=== PATIENT | male | born 1965 | race Caucasian/White ===

== ENCOUNTER 2025-05-30 17:15 | Observation (INO) | payer OTHER, SELFPAY ==
[2025-05-30 12:34] VITALS: BP 175/104
--- NOTE | 2025-05-30 13:01 | ED.GENMED ---
History of Present Illness
General
Chief Complaint: Abdominal Pain
Source: patient and spouse
Exam Limitations: none
Time Seen by Provider: 05/30/25 12:54
History of Present Illness
History of Present Illness:
60-year-old male history of hypertension cholesterol presents with sudden onset of epigastric pain rating to his back with nausea. Started about 2 hours prior to ER arrival. No history of same. Symptoms are severe in nature. No chest pain
shortness of breath. Bowel movements are normal.
Past History
Past History
ED Past Medical History: GERD, HTN and Hypercholesterolemia
ED Past Surgical History: Other (Hernia surgery)
Review of Systems
Review of Systems
All Other Systems: Not applicable
Constitutional: Denies fever or chills
Respiratory: Reports no symptoms
Cardiac: Reports no symptoms
Phy Exam
Physical Exam
Physical Exam:
GENERAL: Alert and oriented. Not toxic but appears very uncomfortable moaning in pain
EYE: Orbits normal.
NECK: Supple, no significant adenopathy.
ENT: Pharynx without erythema
CARDIAC: Regular rate and rhythm without any obvious murmurs.
LUNGS: Clear breath sounds,normal
ABDOMEN: Mild distention. Decreased bowel sounds. Moderate reproducible epigastric tenderness. Mild right upper quadrant tenderness. Good distal pulses and color
NEUROLOGICAL: Alert and oriented , grossly non-focal
SKIN: Warm and dry, no rash or lesion, no discoloration, skin intact.
MUSCULOSKELETAL: No edema,no deformity.Good color
PSYCH: Normal and appropriate interaction.
Course
Orders/Labs/Results
Orders:
Orders
05/30/25
Electrocardiogram (*1) Stat
Comment: DONE
Electrocardiogram (*1) Stat
Comment: DONE EMR
05/30/25 Breakfast
Cholesterol Lowering
Cholesterol Lowering: Sodium, 2 Gram
05/30/25 12:36
ECG [Electrocardiogram (*1)] Urgent
Reason for Study: Abdominal Pain
EKG- Treatment ONCE
05/30/25 12:50
Complete Blood Count/With Diff Urgent
Troponin I Urgent
05/30/25 13:00
CT Abd/pelvis Angio W/wo Iv Stat
Comment:
Reason For Exam: Sudden epigastric pain to the back
Cardiac Monitoring- Treatment ONCE
IV Insert/Care/Rem.- Treatment PRN
0.9% Sodium Chloride 1000 ml [Nss] 1,000 ml IV BOLUS
HYDROmorphone [Dilaudid] 0.5 mg IV NOW STA
Ondansetron Injectable [Zofran] 4 mg IV NOW STA
05/30/25 13:06
HYDROmorphone [Dilaudid] 0.5 mg IV NOW STA
05/30/25 13:43
Comprehensive Metabolic Panel Urgent
Lipase Urgent
05/30/25 14:02
Troponin I Urgent
05/30/25 14:43
US Abdomen Complete/Upper Urgent
Reason For Exam: Sudden epigastric right upper quadrant pain. lfts
05/30/25 Dinner
Clear Liquid
At Your Request: Full Participation
05/30/25 16:29
Electrocardiogram (*1) Stat
Reason for Study: Other
Other Reason for Exam: chest pain
EKG- Treatment ONCE
05/30/25 16:32
Troponin I Urgent
05/30/25 16:57
Admit/Transfer Patient As Directed
Co-Sign Provider:
Level of Care: Observation services
Assign to:: Telemetry
Physician / Group: Lalo Vang
Diagnosis: abdominal pain, elevate troponin, transaminitis
Reason for Telemetry: Chest Pain syndromes
Date to Stop Telemetry: 06/01/25
Time to Stop Telemetry: 11:00
PRN Pain Medication Management As Directed
May give lesser potent ordered pain med per pt: Yes
preference::
Protocol:: Medication orders for pain may be administered in a
manner that supports deferring to patient preference
when the pt is:
- Requesting an ordered lesser potent pain medication.
Least to most potent pain medications are defined
as: acetaminophen < NSAID < tramadol < opioids
(morphine, oxycodone, hydromorphone).
- Requesting a lesser dose of the same medication IF
ORDERED.
- Requesting a less intrusive route of administration
if both routes are prescribed by the provider (PO <
IV).
05/30/25 16:58
Code Status As Directed
Resuscitation Status: Full Code
05/30/25 18:50
Acetaminophen [Tylenol] 650 mg PO Q4HPRN PRN
HYDROmorphone [Dilaudid] 0.5 mg IV Q4HPRN PRN
Ondansetron Injectable [Zofran] 4 mg IV Q6HPRN PRN
Oxycodone [Roxicodone] 5 mg PO Q4HPRN PRN
Sumatriptan Succinate [Imitrex] See Dose Instructions PO .COMPLEX
05/30/25 18:50
Consult Gastroenterology [GASTROINTESTINAL CONSULT] Routine
Consulting Provider: Jayleen Andrade
Was physician already notified: Yes
Activity As Directed
Activity Level: Ambulate
Vital Signs As Directed
Frequency: Per unit guidelines
Weight As Directed
Frequency: Once
Comment: on admission
DX Deep Vein Thrombosis Video Routine
05/30/25 19:15
Enoxaparin Sodium [Lovenox] 40 mg SC QPM
05/31/25 06:00
Basic Metabolic Panel IN AM
Complete Blood Count/No Diff IN AM
Mrcp Without MR [MR Mrcp Without] IN AM
Comment: add MRI abdomen
Reason For Exam: abdominal pain
Recent pill cam endoscopy?: No
05/31/25 08:00
Losartan [Cozaar] 50 mg PO DAILY
Pantoprazole [Protonix] 40 mg PO DAILY
06/01/25 11:00
DC Protocol for Telemetry ONCE
Abnormal Lab Results
05/30/25 05/30/25 05/30/25
12:50 13:43 14:02
WBC 11.4 H 10^3/uL
(4.8-10.8)
Absolute Neuts (auto) 9.3 H 10^3/uL
(1.4-6.5)
Absolute Lymphs (auto) 1.1 L 10^3/uL
(1.2-3.4)
Absolute Monos (auto) 0.8 H 10^3/uL
(0.1-0.6)
Neutrophils % 81.9 H %
(42.2-75.2)
Lymphocytes % 9.9 L %
(20.5-51.1)
Sodium 134 L mmol/L
(135-145)
Carbon Dioxide 21 L mmol/L
(22-30)
Glucose 118 H mg/dl
(70-99)
Total Bilirubin 2.3 H mg/dl
(0.2-1.3)
AST 139 H U/L
(17-59)
ALT 65 H U/L
(0-50)
Troponin I 0.040 H* D ng/ml
05/30/25
16:32
WBC
Absolute Neuts (auto)
Absolute Lymphs (auto)
Absolute Monos (auto)
Neutrophils %
Lymphocytes %
Sodium
Carbon Dioxide
Glucose
Total Bilirubin
AST
ALT
Troponin I 0.049 H* ng/ml
05/30/25 12:50
05/30/25 13:43
Vital Signs
Initial and Last Documented VS:
Initial Vital Signs
Temp Pulse Resp BP Pulse Ox
97.6 F 66 22 175/104 100
05/30/25 12:34 05/30/25 12:34 05/30/25 12:34 05/30/25 12:34 05/30/25 12:34
Last Documented Vital Signs
Temp Pulse Resp BP Pulse Ox
97.6 F 53 12 183/92 99
05/30/25 18:53 05/30/25 18:53 05/30/25 18:53 05/30/25 18:53 05/30/25 18:53
MDM/Problems Addressed
Differential Diagnosis Includes:
Sudden onset epigastric pain to the back. Doubt cardiac. Clearly has exquisite tenderness in the epigastric and some in the right upper quadrant. EKG stable. Will do troponin. Higher on the list would either be bowel obstruction
gastritis/ulcer/dissection/gallbladder. With patient's sudden discomfort level radiation of the back feel CT angio needs to be done ROXANNA.
*Pulse Oximetry
SaO2: 100
Oxygen Mode of Delivery: Room air
Patient hypoxic: no (100)
*Critical Care Note
Total Time (30-74mins, 75-104mins- exclusive of procedures): 40
Update Note
Update Note:
1302.... CAT scan was called. Sudden epigastric pain to the back. Not toxic appearing but appears very uncomfortable. Feel dissection needs to be ruled out ROXANNA. Patient has no history of renal issues. Will not wait on labs. CT notified.
1415... Patient rechecked. Appears very comfortable at this time. Troponin normal but not low normal. Repeat EKG stable. Elected to repeat troponin early. Also await LFTs and lipase. CT negative.
1530... Patient has remained very comfortable and stable. Abdominal exam is currently now unremarkable. Somewhat concerned about the slight troponin trend although repeat EKG was normal and patient is currently asymptomatic. Patient warrants
admission. If the ultrasound is positive this would be consistent with a gallbladder issue. The ultrasound is negative he still has nonspecific LFT elevations with trending troponins.
ED Attending Note
-
Portions of this chart may have been created with voice recognition software.� Occasional wrong word or��sound alike� substitutions may have occurred due to the inherent limitations of voice recognition software.
Discharge Plan
Departure
Patient Disposition: Admit
Date of Disposition: 05/30/25
Time of Disposition: 16:24
Presentation/result/management discussed w/ accepting MD/DO: Hospitalist
Discharge Problem:
Sudden epigastric pain, Transaminitis, Possible new onset angina
Interventions
Interventions:
*Risk Screen - Suicide Last Done: 05/30/25 12:34
*General Assessment Last Done: 05/30/25 14:20
*Neglect/Abuse Screening Last Done: 05/30/25 14:20
*ED- Fall Risk Assessment Last Done: 05/30/25 14:20
*ED COVID-19 Vaccine History Last Done: 05/30/25 14:20
*ED Influenza Vaccine History Last Done: 05/30/25 14:20
*Nursing Disposition Last Done: 05/30/25 18:40
OA-Nnjsmb-Qdqcahofda Assessment Last Done: 05/30/25 13:35
Discharge Date and Time
Discharge Date/Time: 05/30/25 18:40
[2025-05-30] MEDS: DILAUDID 0.5 MG IV (13:03)
[2025-05-30 13:04] LABS: Hematocrit 46.9 % (39.0-52.0); Hemoglobin 15.9 g/dL (13.0-18.0); Mean Corp Hgb Conc. 33.9 g/dL (33.0-37.0); Mean Corpuscular Volume 90.4 fL (80.0-94.0); Nucleated Red Blood Cells % 0 % (-); Platelet Count 279 10^3/uL (130-400); Red Cell Dist. Width 12.8 % (11.5-14.5)
[2025-05-30] MEDS: ZOFRAN 4 MG IV (13:04)
[2025-05-30] MEDS: NSS 1000 IV (13:05)
[2025-05-30 13:24] VITALS: BP 161/81
[2025-05-30 13:30] LABS: Troponin I 0.030 ng/ml
[2025-05-30 14:18] LABS: ALT (SGPT) 65 U/L (0-50); AST (SGOT) 139 U/L (17-59); Albumin 4.2 g/dl (3.5-5.0); Alkaline Phosphatase 58 U/L (38-126); Blood Urea Nitrogen 12 mg/dl (9-20); Calcium 8.8 mg/dl (8.4-10.2); Carbon Dioxide 21 mmol/L (22-30); Chloride 105 mmol/L (98-107); Glucose 118 mg/dl (70-99); Lipase 119 U/L (23-300); Potassium 3.6 mmol/L (3.5-5.1); Sodium 134 mmol/L (135-145); Total Protein 6.4 g/dl (6.3-8.2); eGFR > 60.00
[2025-05-30 14:20] VITALS: BMI 29.9
[2025-05-30 15:00] VITALS: BP 126/72
[2025-05-30 15:02] LABS: Troponin I 0.040 ng/ml
[2025-05-30 15:15] VITALS: BP 134/84
--- NOTE | 2025-05-30 16:27 | HPS.HSE ---
Family Physician
-
Family Physician: Silver Hutton MD
Chief Complaint
-
severe epigastric pain that radiated to back
History of Present Illness
Patient is a 60-year-old male with past medical history significant for hypertension, hyperlipidemia and GERD who presented to [facility] ED for evaluation of severe epigastric pain that radiated to back. Patient reports going on a 3 mile run this
morning, he returned home and ate a half of bagel with cream cheese when he had acute onset of severe epigastric pain, described as pressure that radiated to his back. He states that the back pain felt more like muscles tightening. He had associated
diaphoresis and nausea. Intitially pain was intermittent and then became constant with no relief. Patient denies any cough, shortness of breath, vomiting, palpitations or dizziness.
Medical History
Past Medical History
Past Medical History: Reports Other
Additional Past Medical History:
hypertension
hyperlipidemia
GERD
Past Surgical History: Reports Other
Additional Past Surgical History:
inguinal hernia repair
lithotripsy
Social History
Tobacco: Non-smoker
Alcohol: Occasional (3-4x week)
Drug: None
Personal:
Living: With Family
Employment: Retired
Family History
Family History: Other (Father: CAD, DM)
Allergies / Home Medications
Allergies reflects when Allergies were last updated in [facility].
Home Medications with original date entered in [facility]
Allergy/Medication List:
Allergies
Allergy/AdvReac Type Severity Reaction Status Date / Time
Penicillins Allergy Unknown Verified 05/30/25 12:34
Home Medications
losartan 50 mg tablet 50 mg PO DAILY 05/30/25
omeprazole 20 mg tablet,delayed release 20 mg PO DAILY 05/30/25
rosuvastatin 10 mg tablet (Crestor) 10 mg PO QPM 05/30/25
sumatriptan succinate 50 mg tablet (Imitrex) 0 mg PO .COMPLEX 05/30/25
Review of Systems
-
History Source: Patient
Constitutional: Denies Fever or Chills
EENT: Denies Sore Throat
Respiratory: Denies Cough, Hemoptysis or Trouble Breathing
Cardiac: Reports Chest Pain and Diaphoresis; Denies Palpitations or Syncope
Abdomen/GI: Reports Nausea; Denies Abdominal Pain, Vomiting or Diarrhea
: Denies Dysuria, Frequency or Urgency
Musculoskeletal: Denies Joint Pain
Skin: Denies Rash
Neurological: Denies Dizzy, Headache, Weakness or Numbness
Endocrine: Denies Polyuria or Polydipsia
Hematologic/Lymphatic: Denies Bleeding
Physical Exam
Vital Signs
Vital Signs
Temp Pulse Resp BP Pulse Ox
97.6 F 63 13 134/84 96
05/30/25 12:34 05/30/25 15:15 05/30/25 15:00 05/30/25 15:15 05/30/25 15:00
Physical Exam
General: Well Developed, Well Nourished, No Apparent Distress, Comfortable, Conversant and Obese
HEENT: NormoCephalic, Moist mucous membranes, Nose Appears Normal and Ears Appear Normal
Respiratory: Clear and Non Labored Respirations; No Wheezes, Rales, Rhonchi or Crackles
Cardiac: S1/S2 and Regular Rhythm; No Murmur, Rub or Gallop
GI: Soft, Non Tender and Normal Bowel Sounds (hypoactive )
Musculoskeletal: No Clubbing and No Cyanosis
Skin: Warm and IV/Catheter Site
Neuro: Awake and AO x 3
Hematologic/Lymphatic: No Lymphadenopathy
Psych: Calm and Intact Judgment/Insight
Laboratory Results
-
05/30/25 12:50
05/30/25 13:43
Laboratory Results
Total Bilirubin 2.3 mg/dl (0.2-1.3) H 05/30/25 13:43
AST 139 U/L (17-59) H 05/30/25 13:43
ALT 65 U/L (0-50) H 05/30/25 13:43
Alkaline Phosphatase 58 U/L (38-126) 05/30/25 13:43
Troponin I 0.040 ng/ml H* D 05/30/25 14:02
Lipase 119 U/L (23-300) 05/30/25 13:43
Data Reviewed
-
CT Scan: Report Reviewed by me (Abd/Pel: Abdominal aorta normal in caliber and without findings to suggest dissection. Possible small hiatal hernia. No intestinal obstruction or free air.)
Ultrasound: Report Reviewed by me (Abd: 1. Increased echogenicity in the liver, compatible with underlying hepatocellular disease, which most commonly relates to fatty infiltration of the liver. )
Medical Tests (Nuc Med, Echo, EKG etc): Report Reviewed by me (EKG: NORMAL SINUS RHYTHM)
Lab Data: Labs Reviewed by me (WBC 11.4, Neut 81.9, Na+ 134, tot bili 2.3, AST 139, ALT 65, trop 0.040)
Impression/Plan
-
IMPRESSION/PLAN:
#severe epigastric pain that radiated to back 2/2 NSTEMI vs. gastritis vs. bowel obstruction vs. biliary duct
WBC 11.4, Neut 81.9, trop 0.040
Abd US: 1. Increased echogenicity in the liver, compatible with underlying hepatocellular disease, which most commonly relates to fatty infiltration of the liver.
Abd/Pel CT: Abdominal aorta normal in caliber and without findings to suggest dissection.
Possible small hiatal hernia.
No intestinal obstruction or free air.
EKG: NORMAL SINUS RHYTHM
- Admit to telemetry
- trend troponin
- MRCP/MRI abdomen
- Consult GI
- pain regimen
- antiemetics
#transaminitis
tot bili 2.3, AST 139, ALT 65
- trend LFTs
- hold statin
#hypertension
- continue losartan
#hyperlipidemia
- Hold rosuvastatin
#GERD
- continue omeprazole
Code status: full code
DVT prophylaxis: lovenox sq
--- NOTE | 2025-05-30 17:08 | W.PN.UPDATE ---
Update Note
Progress Note Update
Seen and examined by me independently in collaboration with the nurse practitioner Marleny.
Past medical history/social history/medication/allergies reviewed.
Lab data and imaging data reviewed.
60-year-old healthy gentleman with a history of hypertension which is usually under control apparently i, hyperlipidemia on statins with good control as well apparently, and GERD on omeprazole with good control of symptoms went out for a run-3 mile
run at 10-minute a mile which is his usual speed, came home and had a half a bagel with cream cheese and suddenly developed discomfort in his epigastric area and started feeling nauseous and sweaty and then the pain intensified further to higher and
higher intensity and so he came into the hospital. With the pain medication in the ER his pain is much improved almost resolved.
No similar symptoms with food in the past. No biliary disease, gallbladder issues, liver issues.
Denies any prior history of heart disease.
Had a remote EGD and colonoscopy and no peptic ulcer disease. He has GERD and his symptoms are well-controlled with omeprazole.
He is afebrile and hemodynamically stable.
S1 plus S2 regular without murmur. Chest clear.
Abdomen mild tenderness in the right upper quadrant area with no Rojas sign.
CT angiogram shows no evidence of dissection. Ultrasound of the abdomen shows fatty liver but otherwise no biliary disease.
Liver function test shows cholestatic hepatitis picture.
With acute onset of epigastric pain and associated upper GI symptoms and cholestatic hepatitis picture rule out biliary disease/gallbladder disease.
Admit to hospital. Start on clear liquids. Continue with the pain regimen.
Obtain MRI of the abdomen and MRCP.
Consult GI.
Trend LFTs.
Indeterminate troponin elevation noted. EKG sinus rhythm with no acute ST-T changes. Got good exercise capacity as above. Doubt cardiac in nature. Trend troponins for now.
[2025-05-30 17:13] LABS: Troponin I 0.049 ng/ml
--- NOTE | 2025-05-30 17:26 | EDCM ---
CM reviewed chart and met with pt and his bedside in ED. Lives with , 2 story home, 3 [address], first floor half bath, full flight to second floor bedroom and full bath.
Independent in ADLs, personal care and ambulation at baseline. No assistive devices, no DME.
Confirms prescription coverage.
No hx VN or SNF
PCP: Silver Hutton
Pharmacy: [facility]
Anticipate discharge home, CM will continue to follow for any discharge planning needs.
[2025-05-30 18:53] VITALS: BP 183/92
[2025-05-30 18:54] VITALS: BMI 29.0
[2025-05-30] MEDS: LOVENOX 40 MG SC (20:05)
[2025-05-30 20:43] LABS: Troponin I 0.041 ng/ml
[2025-05-30 23:13] VITALS: BP 143/83
[2025-05-31] VITALS (7 sets, daily range): BP systolic 136–195; BP diastolic 83–106
[2025-05-31 07:14] LABS: Blood Urea Nitrogen 12 mg/dl (9-20); Calcium 9.3 mg/dl (8.4-10.2); Carbon Dioxide 25 mmol/L (22-30); Chloride 108 mmol/L (98-107); Estimated Creatinine Clearance 82 ml/min; Glucose 99 mg/dl (70-99); Potassium 4.4 mmol/L (3.5-5.1); Sodium 138 mmol/L (135-145); eGFR > 60.00
[2025-05-31 07:24] LABS: Hematocrit 44.5 % (39.0-52.0); Hemoglobin 14.9 g/dL (13.0-18.0); Mean Corp Hgb Conc. 33.5 g/dL (33.0-37.0); Mean Corpuscular Volume 93.5 fL (80.0-94.0); Platelet Count 256 10^3/uL (130-400); Red Cell Dist. Width 13.0 % (11.5-14.5)
[2025-05-31 07:25] LABS: Troponin I 0.023 ng/ml
[2025-05-31 07:45] LABS: ALT (SGPT) 143 U/L (0-50); AST (SGOT) 135 U/L (17-59); Albumin 4.3 g/dl (3.5-5.0); Alkaline Phosphatase 55 U/L (38-126); Lipase 79 U/L (23-300); Total Protein 6.5 g/dl (6.3-8.2)
--- NOTE | 2025-05-31 08:24 | CON.GI ---
Addendum entered and electronically signed by Jayleen Andrade MD 05/31/25 18:46:
I saw and examined the patient.
The resident's note was reviewed and I agree with the note.
Comment: Rod is 66-year-old male with history of hypertension, high cholesterol, GERD who presented with sudden onset epigastric pain that started 20 minutes after he ate a bagel, sharp pressure-like sensation going to both sides in the epigastric
area, never had these episodes and currently is resolved. Some nausea but no vomiting. History of acid reflux on omeprazole and good control of symptoms. No trouble swallowing. No constipation, diarrhea, blood or black stool. No weight loss.
No NSAID use. He reports having colonoscopy 2 or 3 years ago in [place], polyp removed and upper endoscopy 8 years ago with some gastritis. No family history of colon cancer but dad with colon polyps.
On admission mild leukocytosis noted but that seems to have normalized, total bilirubin on admission was 2.3, fractionation with both direct and indirect bilirubin's, today total bilirubin was 1.9. AST of 135, ALT of 143 and normal alkaline
phosphatase. Lipase in normal range.
CT angiogram negative, small hiatal hernia noted and abdominal ultrasound showing fatty liver.
- Sudden onset epigastric pain with elevated LFTs, mainly bilirubin and transaminases, no previous LFTs to compare it to
No evidence of gallbladder stones or sludge or ductal dilation on ultrasound and CT angiogram
Given postprandial pain with elevated LFTs, rule out biliary colic, choledocholithiasis
For MRI/MRCP
Currently on low-fat diet but nothing from now as MRI is scheduled for 3:30 AM.
Will follow-up on the above testing
Original Note:
Consultation
-
Date/Time Consultation Requested: 05/30/2025; 18:50
Date/Time Consultation Performed: 05/31/2025; 10:00
Requesting Provider: Marleny Massey
Performing Provider: Jayleen Andrade MD; Hua Joseph MD
Reason for Consultation: epigastric abdominal pain
Medical History
Chief Complaint / HPI
Chief Complaint: epigastric abdominal pain
History of Present Illness:
60 yo M PMH HTN, HLD, GERD, migraine p/w epigastric pain that radiates to the back after going on a run and eating a bagel/cream cheese. It was sharp pain and initially resolved on its own but returned more severely, prompting him to present to the
ED. He attributes the back pain to be more like pressure and muscle contraction-like in response to the epigastric pain.
He reports some nausea but denies vomiting. He denies any changes to bowel habits, denies melena or hematochezia and reports passing flatus.
Other ROS: denies other chest pain, dyspnea, focal weakness, numbness.
Past Medical History
Past Medical History: GERD, HTN and Hypercholesterolemia
Past Surgical History: Other (inguinal hernia, lithotripsy)
Social History
Tobacco: Non-Smoker
Alcohol: Occasional (3-4x/weekly (beer, wine, whiskey))
Drug: None
Personal:
Living: With Family
Allergies / Home Medications
Allergy/AdvReac Type Severity Reaction Status Date / Time
Penicillins Allergy Unknown Verified 05/30/25 12:34
�Medication �Instructions �Recorded
losartan 50 mg tablet 50 mg PO DAILY 05/30/25
omeprazole 20 mg tablet,delayed 20 mg PO DAILY 05/30/25
release
rosuvastatin 10 mg tablet (Crestor) 10 mg PO QPM 05/30/25
sumatriptan succinate 50 mg tablet 0 mg PO .COMPLEX 05/30/25
(Imitrex)
Review of Systems
-
History Source: Patient
Constitutional: Reports No Symptoms
EENT: Reports No Symptoms
Respiratory: Reports No Symptoms
Cardiac: Reports No Symptoms
Abdomen/GI: Reports Abdominal Pain (epigastric, radiates to back)
: Reports No Symptoms
Musculoskeletal: Reports No Symptoms
Skin: Reports No Symptoms
Neurological: Reports No Symptoms
Vital Signs
Temp Pulse Resp BP Pulse Ox
98.3 F 48 18 136/83 98
05/31/25 03:27 05/31/25 03:27 05/31/25 03:27 05/31/25 03:27 05/31/25 03:27
Physical Exam
Exam
General: Comfortable
HEENT: Normocephalic
Respiratory: Clear
Cardiac: Other (no murmurs on my exam)
GI: Soft, Non Distended, Normal Bowel Sounds and Tender (some tenderness to palpation in epigastric region)
Genito-urinary: No Costovertebral Tender
Musculoskeletal: No Edema
Skin: Warm
Neuro: AO x 3, No Motor Deficits and Nonfocal/Grossly Intact
Psych: Calm
Results
WBC 4.0 10^3/uL (4.8-10.8) L 05/31/25 06:37
Hgb 14.9 g/dL (13.0-18.0) 05/31/25 06:37
Hct 44.5 % (39.0-52.0) 05/31/25 06:37
MCV 93.5 fL (80.0-94.0) 05/31/25 06:37
Plt Count 256 10^3/uL (130-400) 05/31/25 06:37
Absolute Neuts (auto) 9.3 10^3/uL (1.4-6.5) H 05/30/25 12:50
Sodium 138 mmol/L (135-145) 05/31/25 06:37
Potassium 4.4 mmol/L (3.5-5.1) 05/31/25 06:37
Chloride 108 mmol/L (98-107) H 05/31/25 06:37
Carbon Dioxide 25 mmol/L (22-30) 05/31/25 06:37
BUN 12 mg/dl (9-20) 05/31/25 06:37
Creatinine 1.0 mg/dL (0.7-1.3) 05/31/25 06:37
Calcium 9.3 mg/dl (8.4-10.2) 05/31/25 06:37
Total Bilirubin 1.9 mg/dl (0.2-1.3) H 05/31/25 06:37
AST 135 U/L (17-59) H 05/31/25 06:37
ALT 143 U/L (0-50) H 05/31/25 06:37
Alkaline Phosphatase 55 U/L (38-126) 05/31/25 06:37
Lipase 79 U/L (23-300) 05/31/25 06:37
Diagnostic Image Results:
CT Abdomen pelvis 05/30/2025
IMPRESSION:
Abdominal aorta normal in caliber and without findings to suggest dissection.
Possible small hiatal hernia.
No intestinal obstruction or free air.
Abdominal US 05/30/2025
Findings:
Liver is increased in echotexture without evidence of focal lesion. The portal and hepatic vessels appear grossly patent.
No intra- or extrahepatic biliary ductal dilatation with the visualized portion of the common duct measuring 4 mm. No gallstones, gallbladder wall thickening, pericholecystic fluid or sonographic Rojas's sign.
Limited visualization of the tail of the pancreas, with the visualized portion of the pancreas unremarkable. Spleen measures 9.2 cm in length, which is not enlarged. No free fluid in the upper abdomen.
Right kidney measures 11.1 cm, and the left kidney measures 11.9 cm in length. No hydronephrosis.
Visualized portions of the abdominal aorta and inferior vena cava appear unremarkable.
IMPRESSION:
1. Increased echogenicity in the liver, compatible with underlying hepatocellular disease, which most commonly relates to fatty infiltration of the liver.
Assessment / Plan
-
In summary, 60 yo M PMH HTN, HLD, GERD, migraine p/w epigastric pain that radiates to the back, currently most concerning for gallbladder/biliary tree disease
# Epigastric abdominal pain
- ddx for abdominal pain in epigastric region is broad and includes several etiologies: pancreatitis, cholelithiasis/choledocholithiasis, biliary colic, malignancy. Extraabdominal etiologies should also be considered: aortic dissection, ACS
- CT abdomen pelvis did not show aortic dissection or biliary tract dilation
- Elevated troponin initially but has since decreased; EKG did not show signs of ischemia
- Abdominal ultrasound was not able to detect gallstones in biliary tree
- lipase was normal on repeat labs this morning as well, pointing away from pancreatitis; further CT did not show imaging findings of pancreatitis
- LFTs: R factor based on initial labs = 2.8 which is initially mixed; and repeat labs 05/31, R factor = 6.6 pointing towards hepatocellular likely due to the increase in ALT
Plan
- MRI and MRCP to evaluate biliary tree and for any malignancy
- Keep NPO for now
- supportive care for anti-nausea (QTc 438ms from EKG on 05/30/2025) and pain control
- trend LFTs
-
-
Thank you for consultation and allowing me to participate in the patient's care. Please call the instructional services librarian GI physician during the after hours with any questions or concerns.
--- NOTE | 2025-05-31 12:25 | W.PN.HOSP.TC ---
Today's Communication/Plan
-
Await MRI of the abdomen and MRCP
Await GI input
Follow LFTs
Assessment / Plan
Assessment / Plan
Acute postprandial abdominal pain with nausea and mild right upper quadrant tenderness on admission with cholestatic hepatitis picture-initial imaging of ultrasound of the abdomen and CT of the abdomen pelvis shows fatty liver but no biliary ductal
dilatation or gallbladder disease.
Resolved abdominal pain.
Improving LFTs.
Unclear etiology but will rule out biliary disease/gallbladder disease-MRI of the abdomen and MRCP pending. GI consult pending.
Indeterminate troponins with a peak of 0.040 -no history of CAD. EKG on admission showed no ST-T changes. Patient is in good health runs 3 miles a day with 10-minute a mile which is excellent cardiac health for his age. I suspect this is an
nonischemic myocardial injury in the setting of above.
History of essential hypertension-continue losartan
History of hyperlipidemia-hold statins till LFTs normalize
Full code
Total time spent on today's encounter was 52 minutes which included time spent in counseling the patient/family regarding diagnosis and treatment plan as listed above, goals of care, and symptom management. Case was discussed with nursing staff,
specialists, and care coordinators/case management. All labs and imaging personally reviewed by me. Remainder the time spent in detailed review of previous records, lab data, imaging, and other medical provider documentation.
Portions of this chart may have been created with voice recognition software. Occasional wrong word or 'sound alike' substitutions may have occurred due to the inherent limitations of voice recognition software.
Anticipated Discharge: 24 - 48 hours
Subjective/Interval History
-
Date of Service: May 31, 2025
Resolved abdominal pain ever since he received the pain medication in the ER. No further nausea either. No fever chills. Denies chest pain or shortness of breath.
Objective Data
-
Labs:
Laboratory Results
05/31/25
06:37
WBC 4.0 L
Hgb 14.9
Hct 44.5
Plt Count 256
Sodium 138
Potassium 4.4
Chloride 108 H
Carbon Dioxide 25
BUN 12
Creatinine 1.0
Glucose 99
Calcium 9.3
Total Bilirubin 1.9 H
AST 135 H
ALT 143 H
Alkaline Phosphatase 55
Vital Signs:
Vital Signs
Temp Pulse Resp BP Pulse Ox
97.7 F 50 16 145/90 98
05/31/25 07:00 05/31/25 07:00 05/31/25 07:00 05/31/25 07:00 05/31/25 10:30
Physical Exam
-
General: Comfortable
Respiratory: Clear to Auscultation and Non Labored Respirations; Negative Accessory Resp Muscle Use
Cardiac: Regular Rhythm and S1/S2; Negative Tachycardic
GI: Soft, Nontender, Nondistended and Normal Bowel Sounds
Neuro: AO x 3
Psych: Calm
Data Reviewed
-
Labs: Labs Reviewed by me
[2025-05-31 13:38] LABS: Troponin I 0.015 ng/ml
--- NOTE | 2025-05-31 14:39 | CM ---
Met with pt at bedside. GI workup remains in progress.
Plan: home no needs
[2025-05-31] MEDS: COZAAR PO (14:58)
[2025-05-31] MEDS: PROTONIX PO (14:58)
[2025-05-31] MEDS: LOVENOX 40 MG SC (17:27)
[2025-05-31] MEDS: TYLENOL 650 MG PO (18:30)
[2025-05-31] MEDS: ZOFRAN 4 MG IV (18:31)
[2025-05-31] MEDS: DILAUDID 0.5 MG IV (19:28)
[2025-06-01] MEDS: ZOFRAN 4 MG IV ×3 (00:52→20:26)
[2025-06-01] MEDS: DILAUDID 0.5 MG IV ×3 (01:05→20:26)
[2025-06-01] MEDS: ATIVAN 0.5 MG PO (02:08)
[2025-06-01 03:19] VITALS: BP 158/88
[2025-06-01 07:00] VITALS: BP 136/86
[2025-06-01 08:23] LABS: Hematocrit 43.9 % (39.0-52.0); Hemoglobin 15.3 g/dL (13.0-18.0); Mean Corp Hgb Conc. 34.9 g/dL (33.0-37.0); Mean Corpuscular Volume 89.6 fL (80.0-94.0); Platelet Count 247 10^3/uL (130-400); Red Cell Dist. Width 13.0 % (11.5-14.5)
[2025-06-01 08:44] LABS: ALT (SGPT) 328 U/L (0-50); AST (SGOT) 367 U/L (17-59); Albumin 4.5 g/dl (3.5-5.0); Alkaline Phosphatase 70 U/L (38-126); Blood Urea Nitrogen 15 mg/dl (9-20); Calcium 9.5 mg/dl (8.4-10.2); Carbon Dioxide 24 mmol/L (22-30); Chloride 108 mmol/L (98-107); Estimated Creatinine Clearance 91 ml/min; Glucose 97 mg/dl (70-99); Potassium 4.4 mmol/L (3.5-5.1); Sodium 138 mmol/L (135-145); Total Protein 7.0 g/dl (6.3-8.2); eGFR > 60.00
--- NOTE | 2025-06-01 10:38 | W.PN.HOSP.TC ---
Today's Communication/Plan
-
NPO pending GI plans
Hep serology
Assessment / Plan
Assessment / Plan
Assessment:
Acute postprandial abdominal pain with nausea and mild right upper quadrant tenderness on admission with cholestatic hepatitis picture-initial imaging of ultrasound of the abdomen and CT of the abdomen pelvis shows fatty liver but no biliary ductal
dilatation or gallbladder disease.
- LFTs rising after initially improving
- check hepatitis serologies
- MRI negative
- GI following; await further next diagnostic steps
Indeterminate troponin with a peak of 0.040 -no history of CAD. EKG on admission showed no ST-T changes. Patient is in good health runs 3 miles a day with 10-minute a mile which is excellent cardiac health for his age. Suspect this is an
nonischemic myocardial injury in the setting of above.
History of essential hypertension
- continue losartan
History of hyperlipidemia
- hold statins till LFTs normalize
DVT ppx: Lovenox
Code: Full
Anticipated Discharge: 24 - 48 hours
Subjective/Interval History
-
Date of Service: June 01, 2025
reports ongoing epigastric pain, nausea
no fever/chills
Objective Data
-
Labs:
Laboratory Results
06/01/25
07:52
WBC 4.2 L
Hgb 15.3
Hct 43.9
Plt Count 247
Sodium 138
Potassium 4.4
Chloride 108 H
Carbon Dioxide 24
BUN 15
Creatinine 0.9
Glucose 97
Calcium 9.5
Total Bilirubin 3.2 H D
AST 367 H
ALT 328 H
Alkaline Phosphatase 70
Vital Signs:
Vital Signs
Temp Pulse Resp BP Pulse Ox
98.0 F 43 16 136/86 99
06/01/25 07:00 06/01/25 07:00 06/01/25 07:00 06/01/25 07:00 06/01/25 07:00
I&O
05/31/25 06/01/25 06/02/25
06:59 06:59 06:59
Intake Total 720 / 720
Balance 720 / 720
Physical Exam
-
General: No Apparent Distress
HEENT: Normocephalic and Atraumatic
Respiratory: Negative Wheezes
Cardiac: Regular Rhythm and S1/S2
GI: Nondistended and Tender (epigastric/ RUQ)
Neuro: AO x 3
Hematologic / Lymphatic: No Lymphadenopathy
Psych: Calm
Data Reviewed
-
Total Time Spent with Patient (in minutes): 41
Labs: Labs Reviewed by me
[2025-06-01 11:00] VITALS: BP 133/88
[2025-06-01] MEDS: COZAAR PO (13:43)
[2025-06-01] MEDS: PROTONIX PO (13:43)
[2025-06-01] MEDS: NSS 1000 IV (13:52)
[2025-06-01 15:00] VITALS: BP 142/89
[2025-06-01] MEDS: PROTONIX 40 MG PO (17:22)
[2025-06-01] MEDS: COZAAR 50 MG PO (17:22)
[2025-06-01] MEDS: LOVENOX 40 MG SC (17:23)
--- NOTE | 2025-06-01 17:25 | CM ---
Chart reviewed. Pt continues with IV pain management. Can be DC'd when cleared by GI
Plan: Home no needs
--- NOTE | 2025-06-01 19:11 | W.PN.GI.CBS2 ---
Today's Communication / Plan
-
- Sudden onset epigastric pain with elevated LFTs, mainly bilirubin and transaminases,
No evidence of gallbladder stones or sludge or ductal dilation on ultrasound and CT angiogram
MRI/MRCP-no evidence of acute cholecystitis or choledocholithiasis
Reviewing LFTs, total bilirubin elevated to 3.2 but majority of it is indirect, alkaline phosphatase completely normal. AST and ALT of 367 and 328 which are elevated. I reviewed previous LFTs with patient/ from their records, completely
unremarkable in the last few years.
Elevated indirect bilirubin points towards Gilbert's and there is no evidence of choledocholithiasis on MRCP. Dr. Hutton reviewed images as well and no indication for endoscopy ultrasound at this time.
Given elevated transaminases, agree with hepatitis B/C serologies. Continue to trend LFTs.
Abdominal pain in the epigastric area, he does have history of acid reflux but has been on omeprazole for several years
Will do upper endoscopy tomorrow to evaluate this abdominal pain
Continue pantoprazole 40 mg daily
If upper endoscopy is unremarkable, consider HIDA scan given persistent pain and elevated transaminases.
Will follow-up on the above testing
Assessment / Plan
-
In summary, 60 yo M PMH HTN, HLD, GERD, migraine p/w epigastric pain that radiates to the back, currently most concerning for gallbladder/biliary tree disease
# Epigastric abdominal pain
- ddx for abdominal pain in epigastric region is broad and includes several etiologies: pancreatitis, cholelithiasis/choledocholithiasis, biliary colic, malignancy. Extraabdominal etiologies should also be considered: aortic dissection, ACS
- CT abdomen pelvis did not show aortic dissection or biliary tract dilation
- Elevated troponin initially but has since decreased; EKG did not show signs of ischemia
- Abdominal ultrasound was not able to detect gallstones in biliary tree
- lipase was normal on repeat labs this morning as well, pointing away from pancreatitis; further CT did not show imaging findings of pancreatitis
- LFTs: R factor based on initial labs = 2.8 which is initially mixed; and repeat labs 05/31, R factor = 6.6 pointing towards hepatocellular likely due to the increase in ALT
- Sudden onset epigastric pain with elevated LFTs, mainly bilirubin and transaminases,
No evidence of gallbladder stones or sludge or ductal dilation on ultrasound and CT angiogram
MRI/MRCP-no evidence of acute cholecystitis or choledocholithiasis
Reviewing LFTs, total bilirubin elevated to 3.2 but majority of it is indirect, alkaline phosphatase completely normal. AST and ALT of 367 and 328 which are elevated. I reviewed previous LFTs with patient/ from their records, completely
unremarkable in the last few years.
Elevated indirect bilirubin points towards Gilbert's and there is no evidence of choledocholithiasis on MRCP. Dr. Hutton reviewed images as well and no indication for endoscopy ultrasound at this time.
Given elevated transaminases, agree with hepatitis B/C serologies. Continue to trend LFTs.
Abdominal pain in the epigastric area, he does have history of acid reflux but has been on omeprazole for several years
Will do upper endoscopy tomorrow to evaluate this abdominal pain
Continue pantoprazole 40 mg daily
If upper endoscopy is unremarkable, consider HIDA scan given persistent pain and elevated transaminases.
Will follow-up on the above testing
Subjective
Subjective
Date of Service: June 01, 2025
Patient did report epigastric discomfort after dinner last night, no fevers or chills. Some mild epigastric discomfort now but not significant
Objective
Data Reviewed
Laboratory Data:
Laboratory Results
06/01/25 07:52
06/01/25 07:52
Laboratory Results
Total Bilirubin 3.2 mg/dl (0.2-1.3) H D 06/01/25 07:52
AST 367 U/L (17-59) H 06/01/25 07:52
ALT 328 U/L (0-50) H 06/01/25 07:52
Alkaline Phosphatase 70 U/L (38-126) 06/01/25 07:52
Lipase 79 U/L (23-300) 05/31/25 06:37
Vital Signs and I&O:
Vital Signs
Temp Pulse Resp BP Pulse Ox
98.1 F 49 16 133/88 99
06/01/25 15:00 06/01/25 17:22 06/01/25 15:00 06/01/25 17:22 06/01/25 15:00
I&O
05/31/25 06/01/25 06/02/25
06:59 06:59 06:59
Intake Total 720 / 720 360 / 360
Balance 720 / 720 360 / 360
Physical Exam
Physical Exam
GI: Soft, Non Distended and Tender (Mild discomfort on palpation in the upper abdomen and right upper quadrant)
[2025-06-01 19:12] VITALS: BP 143/86
[2025-06-01 23:36] VITALS: BP 143/87
[2025-06-02 03:04] VITALS: BP 149/84
[2025-06-02 07:42] VITALS: BP 134/81
[2025-06-02] MEDS: COZAAR 50 MG PO (08:48)
[2025-06-02] MEDS: PROTONIX 40 MG PO (08:48)
[2025-06-02 09:35] LABS: Hematocrit 43.5 % (39.0-52.0); Hemoglobin 15.0 g/dL (13.0-18.0); Mean Corp Hgb Conc. 34.5 g/dL (33.0-37.0); Mean Corpuscular Volume 89.5 fL (80.0-94.0); Platelet Count 261 10^3/uL (130-400); Red Cell Dist. Width 13.0 % (11.5-14.5)
[2025-06-02 10:05] LABS: ALT (SGPT) 281 U/L (0-50); AST (SGOT) 189 U/L (17-59); Albumin 4.4 g/dl (3.5-5.0); Alkaline Phosphatase 71 U/L (38-126); Blood Urea Nitrogen 15 mg/dl (9-20); Calcium 9.7 mg/dl (8.4-10.2); Carbon Dioxide 26 mmol/L (22-30); Chloride 106 mmol/L (98-107); Estimated Creatinine Clearance 74 ml/min; Glucose 94 mg/dl (70-99); Potassium 4.5 mmol/L (3.5-5.1); Sodium 139 mmol/L (135-145); Total Protein 6.9 g/dl (6.3-8.2); eGFR > 60.00
[2025-06-02 11:03] VITALS: BP 140/80
--- NOTE | 2025-06-02 11:21 | CM ---
Reviewed chart and met with pt chairside. Pt is schedule at 3:30 for a HIDA scan. Biopsy report from endoscopy is pending. If discharged today, pt will go home by car with
Plan: possible DC to home today with no needs
[2025-06-02] MEDS: CARAFATE SUSPENSION 1 GM PO ×3 (11:25→21:03)
--- NOTE | 2025-06-02 12:18 | W.PN.HOSP.TC ---
Today's Communication/Plan
-
continue PPI daily + Carafate
LFT lab slip for 1 and 2 weeks post-discharge
Await HIDA; if normal can dc home with OP GI f/u - reviewed with GI office
Assessment / Plan
Assessment / Plan
Assessment:
Acute postprandial abdominal pain with nausea and mild right upper quadrant tenderness on admission with cholestatic hepatitis picture-initial imaging of ultrasound of the abdomen and CT of the abdomen pelvis shows fatty liver but no biliary ductal
dilatation or gallbladder disease.
- LFTs rising after initially improving; indirect bilirubinemia could suggest [place] syndrome as well
- check hepatitis serologies
- MRI negative
- HIDA planned today
- EGD 06/02: gastritis and small gastric ulcers. continue daily PPI and add Carafate.
Indeterminate troponin with a peak of 0.040 -no history of CAD. EKG on admission showed no ST-T changes. Patient is in good health runs 3 miles a day with 10-minute a mile which is excellent cardiac health for his age. Suspect this is an
nonischemic myocardial injury in the setting of above.
History of essential hypertension
- continue losartan
History of hyperlipidemia
- hold statins till LFTs normalize
DVT ppx: Lovenox
Code: Full
Anticipated Discharge: Within 24 hours
Subjective/Interval History
-
Date of Service: June 02, 2025
reports mild epigastric pain
s/p EGD with gastritis and small gastric ulcers
Objective Data
-
Labs:
Laboratory Results
06/02/25 06/02/25
09:08 09:09
WBC 3.5 L
Hgb 15.0
Hct 43.5
Plt Count 261
Sodium 139
Potassium 4.5
Chloride 106
Carbon Dioxide 26
BUN 15
Creatinine 1.1
Glucose 94
Calcium 9.7
Total Bilirubin 2.6 H
AST 189 H
ALT 281 H
Alkaline Phosphatase 71
Vital Signs:
Vital Signs
Temp Pulse Resp BP Pulse Ox
97.4 F 55 12 140/80 98
06/02/25 11:03 06/02/25 11:03 06/02/25 11:03 06/02/25 11:03 06/02/25 11:03
I&O
06/01/25 06/02/25 06/03/25
06:59 06:59 06:59
Intake Total 720 / 720 840 / 840
Balance 720 / 720 840 / 840
Physical Exam
-
General: No Apparent Distress
HEENT: Normocephalic and Atraumatic
Respiratory: Negative Wheezes
Cardiac: Regular Rhythm and S1/S2
GI: Soft and Nontender
Musculoskeletal: No Edema
Neuro: AO x 3
Psych: Calm
Data Reviewed
-
Total Time Spent with Patient (in minutes): 42
Labs: Labs Reviewed by me
[2025-06-02 13:23] LABS: Hepatitis B Surface Antigen Negative (Negative)
[2025-06-02 13:40] LABS: Hepatitis A Antibody, Total Negative (Negative); Hepatitis C Antibody Negative (Negative)
[2025-06-02 16:51] VITALS: BP 162/85
[2025-06-02] MEDS: LOVENOX SC (18:11)
[2025-06-02 19:22] VITALS: BP 139/96
[2025-06-02 23:24] VITALS: BP 142/85
[2025-06-03] MEDS: TYLENOL 650 MG PO (00:04)
[2025-06-03] MEDS: ZOFRAN 4 MG IV (00:11)
[2025-06-03 03:57] VITALS: BP 140/79
[2025-06-03 07:05] VITALS: BP 133/78
[2025-06-03] MEDS: CARAFATE SUSPENSION 1 GM PO (07:37)
[2025-06-03 08:10] LABS: Hematocrit 43.8 % (39.0-52.0); Hemoglobin 15.3 g/dL (13.0-18.0); Mean Corp Hgb Conc. 34.9 g/dL (33.0-37.0); Mean Corpuscular Volume 91.1 fL (80.0-94.0); Platelet Count 279 10^3/uL (130-400); Red Cell Dist. Width 12.7 % (11.5-14.5)
[2025-06-03] MEDS: COZAAR 50 MG PO (08:16)
[2025-06-03] MEDS: PROTONIX 40 MG PO (08:16)
[2025-06-03 08:46] LABS: ALT (SGPT) 291 U/L (0-50); AST (SGOT) 232 U/L (17-59); Albumin 4.6 g/dl (3.5-5.0); Alkaline Phosphatase 88 U/L (38-126); Blood Urea Nitrogen 15 mg/dl (9-20); Calcium 9.5 mg/dl (8.4-10.2); Carbon Dioxide 23 mmol/L (22-30); Chloride 105 mmol/L (98-107); Estimated Creatinine Clearance 82 ml/min; Glucose 95 mg/dl (70-99); Potassium 4.3 mmol/L (3.5-5.1); Sodium 138 mmol/L (135-145); Total Protein 7.1 g/dl (6.3-8.2); eGFR > 60.00
--- NOTE | 2025-06-03 09:40 | W.PN.GI.CBS2 ---
Today's Communication / Plan
-
Okay for d/c today, outpatient f/u
Assessment / Plan
-
In summary, 60 yo M PMH HTN, HLD, GERD, migraine p/w epigastric pain that radiates to the back, currently most concerning for gallbladder/biliary tree disease
#Elevated LFTs with indirect hyperbilirubinemia, R factor suggestive of hepatocellular injury
# Epigastric abdominal pain s/p EGD on 06/02 with findings of multiple superficial gastric ulcers, hiatal hernia and schatzki ring
-recommend PPI BID x 8 weeks then once daily; pathology pending, will reach out to patient once it has resulted
-Carafate 1g mg with meals
-No evidence of gallbladder stones or sludge or ductal dilation on ultrasound and CT angiogram
-MRI/MRCP-no evidence of acute cholecystitis or choledocholithiasis
-HIDA negative
-LFTs could possibly be due to mild rhabdo with elevated CK? not checked on admission, so the mild elevation on 06/02 labs could be an improvement vs. [place] and another culprit for acute hepatocellular injury
-hepatitis panel negative, serologies demonstrate lack of immunity to both hepatitis A and B, recommend outpatient vaccination; will plan to check additional serologies as an outpatient if LFTs remain elevated on discharge
Okay for d/c today from a GI perspective, tolerating PO okay. Will send rx for PPI BID and carafate. He has f/u with PCP on thu., recommend repeat LFTs. Outpatient GI f/u, appointment in d/c paperwork.
Subjective
Subjective
Date of Service: June 03, 2025
Patient seen in follow-up. Overall, feels improved. Had some improvement in LFTs, slightly up from yesterday but improved since arrival. CK was elevated, never checked on admission, so could have come down significantly. HIDA was normal.
Objective
Data Reviewed
Laboratory Data:
Laboratory Results
06/03/25 06:51
06/03/25 06:51
Laboratory Results
Total Bilirubin 2.7 mg/dl (0.2-1.3) H 06/03/25 06:51
AST 232 U/L (17-59) H 06/03/25 06:51
ALT 291 U/L (0-50) H 06/03/25 06:51
Alkaline Phosphatase 88 U/L (38-126) 06/03/25 06:51
Lipase 79 U/L (23-300) 05/31/25 06:37
Vital Signs and I&O:
Vital Signs
Temp Pulse Resp BP Pulse Ox
97.7 F 50 16 133/78 96
06/03/25 07:05 06/03/25 07:05 06/03/25 07:05 06/03/25 07:05 06/03/25 07:05
I&O
06/02/25 06/03/25 06/04/25
06:59 06:59 06:59
Intake Total 840 / 840 480 / 480
Balance 840 / 840 480 / 480
Physical Exam
Physical Exam
GI: Soft, Non Distended and Tender (Mild discomfort on palpation in the upper abdomen and right upper quadrant but improved )
--- NOTE | 2025-06-03 11:38 | CM ---
Chart reviewed. Okay for d/c today from a GI perspective, tolerating PO okay.
No CM needs at this time
Plan: Home, no needs
--- NOTE | 2025-06-03 13:58 | W.DCSUMMARY ---
Discharge Summary
Discharge Data
Date of Admission: 05/30/25
Date of Discharge: 06/03/25
-
Pending Results: Yes (Gastric biopsies)
Hospital Course
Primary diagnosis:
Epigastric pain suspect secondary to multiple superficial gastric ulceration
Hiatus hernia
Schatzki's ring
Elevated liver function test with indirect hyperbilirubinemia, R factor suggestive hepatocellular injury
Secondary diagnosis:
Essential hypertension
Hyperlipidemia
Hospital course:
Patient presented with epigastric pain radiating to the back. He had cholestatic hepatitis picture on lab tests. He had an initial CT angiogram which did not show any aortic dissection. He had no evidence of ischemia on EKG. Troponins was 0.04
indicating nonischemic myocardial injury.
Initial Concern was biliary/gallbladder disease. He had initially ultrasound of the abdomen and then a CT of the abdomen pelvis which did not show any evidence of biliary disease. He went on to have MRI with MRCP which also did not show any
evidence of biliary disease. Had a HIDA scan which was also negative. His R factor was suggestive hepatocellular injury. He had indirect hyperbilirubinemia which could be Gilbert's. There was minimal CPK elevation and there was no other trauma
to suggest rhabdomyolysis and in turn causing abnormal LFTs. He had a hepatitis screen which was negative but had showed he is not immune to hepatitis A or B so was advised to get routine vaccinations through PCP.
Because of epigastric nature of the pain he went on to have a EGD which showed multiple superficial gastric ulcer which were biopsied. This could possibly be playing a role of his abdominal symptoms. Was put on PPI twice daily for 8 weeks Carafate
with meals was also recommended. He was tolerating diet. Will follow-up with his primary care to repeat LFTs and follow outpatient with GI after the biopsies.
He was advised to hold statins till LFTs normalize. He was also advised to stop alcohol for now and we will abnormal liver function test. He drinks 3-4 times a week .
Today he was feeling fine without abdominal pain. No nausea vomiting. Tolerating diet. Abdominal soft. Afebrile. Blood pressure 133/78.
Was seen by GI today and cleared for discharge.
Medically also stable for discharge.
Portions of this chart may have been created with voice recognition software. Occasional wrong word or 'sound alike' substitutions may have occurred due to the inherent limitations of voice recognition software.
Consultants on board:
GI-Jayleen Raymundo
Discharge Plan
-
Patient Disposition: Home (Routine Discharge)
Discharge Diagnosis/Procedures: Elevated LFTs, abd pain, gastritis with small gastric ulcers
Condition: Fair
Diet: Regular
Additional Diets: avoid acidic foods while recovering from ulcers
Activity: As tolerated
Driving Restrictions: As prior to admission
Bathing Restrictions: None
Blood Work: CMP blood work in one week -arrange through your PCP
Referrals:
Silver Hutton MD [Family Provider] - in less than 1 week
Jayleen Andrade MD [Active, Gastroenterology] - 07/10/25 12:00 pm
Additional Discharge Medication Instructions: pantoprazole instead of omeprazole
Prescriptions:
New
acetaminophen 325 mg Tablet
650 mg PO Q4HPRN PRN (Reason: mild pain/PURCELL/temp> 100.4F) Qty: 60 0RF
sucralfate 100 mg/mL Suspension
1 gm PO ACHS Qty: 1200 0RF
pantoprazole [Protonix] 40 mg tablet,delayed release (DR/EC)
40 mg PO BID Qty: 60 0RF
Continued
losartan 50 mg Tablet
50 mg PO DAILY
sumatriptan succinate [Imitrex] 50 mg Tablet
0 mg PO .COMPLEX
Rx Instructions:
take 1 tab at onset of headache; if no relief may repeat 1 tab after at least 2 hrs; max = 4 tabs/24 hr
Held
rosuvastatin [Crestor] 10 mg Tablet
10 mg PO QPM
Hold Instructions: until cleared by PCP/GI to resume
Discontinued
omeprazole 20 mg Tablet,Delayed Release (Dr/Ec)
20 mg PO DAILY
Discharge Orders:
Discharge Patient (As Directed); Ordered 06/03/25
Ordered By: Lalo Vang
Discharge Date and Time
Discharge Date/Time: 06/03/25 12:25
Print Language: [email or web address]
== END 2025-06-03 12:25 | disposition home or self-care (01) ==
LOC: 4 EAST ACU 17:15
PROVIDERS: Internal Medicine; Nurse Practitioner Family; Student in an Organized Health Care Education/Training Program; ADMITTING PHYSICIAN Internal Medicine; CONSULT PHYSICIAN Internal Medicine Gastroenterology; EMERGENCY PHYSICIAN Emergency Medicine; FAMILY PHYSICIAN Internal Medicine
DX: K25.9 Gastric ulcer, unspecified as acute or chronic, without hemorrhage or perforation (principal); K29.70 Gastritis, unspecified, without bleeding; K76.89 Other specified diseases of liver; E78.00 Pure hypercholesterolemia, unspecified; K21.9 Gastro-esophageal reflux disease without esophagitis; I10 Essential (primary) hypertension; K44.9 Diaphragmatic hernia without obstruction or gangrene; K22.2 Esophageal obstruction; K76.0 Fatty (change of) liver, not elsewhere classified; I5A Non-ischemic myocardial injury (non-traumatic); Z79.899 Other long term (current) drug therapy; Z87.11 Personal history of peptic ulcer disease
CPT/HCPCS: 43239; 74174; 74183; 76700; 78226; 80053; 82248; 82550; 83690; 84484; 85025; 85027; 86706; 86708; 86803; 87340; 88305; 88342; 93005; 96361; 96374; 96375; 99291; A9537; A9575; G0378; Q9967